=== PATIENT | male | born 1975 | race Caucasian/White ===

== ENCOUNTER 2022-09-08 17:57 | Emergency (ER) | payer OTHER, SELFPAY ==
[2022-09-08 18:13] VITALS: BP 152/96; PULSE 84; RESP 16; TEMP 37.3; O2SAT 96; BMI 36.9
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
== END 2022-09-08 19:03 | disposition other institution (70) ==
LOC: ED 18:26
PROVIDERS: Emergency Provider Family Medicine
DX: S05.91XA Unspecified injury of right eye and orbit, initial encounter (principal); W39.XXXA Discharge of firework, initial encounter
CPT/HCPCS: 99284; 99291

== ENCOUNTER 2022-09-08 18:48 | Outpatient (CLI) | payer OTHER, SELFPAY | END 2022-09-08 18:49 | disposition home or self-care (01) | LOC: AMB 09-09 09:48 | PROVIDERS: Visit Provider Family Medicine | DX: S05.90XS Unspecified injury of unspecified eye and orbit, sequela (principal); W39.XXXS Discharge of firework, sequela | CPT/HCPCS: A0425; A0428 ==

== ENCOUNTER 2023-06-24 09:46 | Emergency (ER) | payer OTHER, SELFPAY ==
[2023-06-24] VITALS (13 sets, daily range): BP systolic 133–197; BP diastolic 100–121; PULSE 67–85; RESP 20; TEMP 36.2; O2SAT 93–96; BMI 39.9
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
--- NOTE | 2023-06-24 11:01 | XR_ITS ---
Patient: WAYNE PETERSEN Facility:?[facility] Patient ID:?[id number] Site Patient ID:?[id number]. Site :?[id number] Study:?XRay-Chest PCXR-06/24/2023 11:18:28 AM Ordering Physician:EVONNE Final Report: Indication: Lightheadedness Comparison: None available. Technique: Single AP view chest Findings: There is hyperinflation and chronic interstitial change. There is no focal consolidation, effusion, or pneumothorax. The cardiomediastinal silhouette is within normal limits. The bony thorax is grossly intact. Impression: No acute cardiopulmonary abnormality. Dictated by Marlo Spangler MD @ 06/24/2023 11:34:06 AM Signed by:?Marlo Spangler MD @06/24/2023 11:34:06 AM (Electronic Signature)
[2023-06-24] MEDS: 0.9 % SODIUM CHLORIDE 1000 ml 1,000 ML IV (11:20)
[2023-06-24 11:23] LABS: Basophils Absolute Auto 0.02 K/uL (0.00-0.30); Basophils Percent Auto 0.2 % (0.0-3.0); Hematocrit 46.8 % (37.0-53.0); Immature Granulocytes Abs Auto 0.01 K/uL (0.00-0.30); Immature Granulocytes Pct Auto 0.1 %; Lymphocytes Percent Auto 19.4 % (20-44); Mean Corpuscular HGB Conc 34 gm/dL (32-36); Mean Corpuscular Hemoglobin 31 pg (26-34); Mean Corpuscular Volume 92 fL (80-100); Monocytes Percent Auto 7.3 % (0.0-11.0); Neutrophils Absolute Auto 7.01 K/uL (1.7-7.0); Platelet Count* 252 K/uL (140-440); White Blood Count* 9.74 K/uL (4.50-11.00)
[2023-06-24 11:26] LABS: Slide Review Reflex No
[2023-06-24 11:33] LABS: Albumin* 4.7 g/dL (3.3-5.0); Chloride* 106 mmol/L (96-114)
[2023-06-24 11:34] LABS: Potassium* 4.5 mmol/L (3.6-5.1); Sodium* 141 mmol/L (135-149)
[2023-06-24 11:36] LABS: Alkaline Phosphatase* 104 U/L (40-150); Anion Gap 5 mEq/L (7-15); Aspartate Amino Transferase* 62 U/L (12-35); Bilirubin Total* 1.1 mg/dL (0.1-1.5); Carbon Dioxide* 30 mmol/L (20-32); Creatinine* 0.7 mg/dL (0.5-1.5); Est. Creatinine Clearance* 131.86; Estimated Glomerular Filt Rate 115 ml/min; Total Protein* 7.6 g/dL (6.0-8.3)
[2023-06-24 11:37] LABS: Alanine Aminotransferase* 79 U/L (4-50); Blood Urea Nitrogen* 15 mg/dL (5-24); Calcium* 9.7 mg/dL (8.4-10.6); Glucose* 99 mg/dL (60-115); Magnesium* 2.1 mg/dL (1.5-2.6)
[2023-06-24] MEDS: AMLODIPINE 5 MG TABLET PO (12:45)
== END 2023-06-24 12:46 | disposition home or self-care (01) ==
PROVIDERS: Emergency Provider Family Medicine
DX: R42 Dizziness and giddiness (principal); I10 Essential (primary) hypertension
CPT/HCPCS: 36415; 71045; 80053; 83735; 84484; 85025; 93005; 96360; 99284; 99285; A9270; J7030